=== PATIENT | female | born 1955 | race Caucasian/White ===

== ENCOUNTER 2022-02-05 07:30 | Day surgery (SDC) | payer MEDICARE, OTHER ==
[~2022-02-05] VITALS: Ht 167.6 cm; Wt 104.3 kg
[~2022-02-05 07:30] MED LIST: CYCLOBENZAPRINE10 MG PO; DILTIAZEM ER180 M1 PO; LEVOTHYROXINE175 MC1 PO; LIPITOR20 MG PO; METFORMIN HCL500 MG PO; OMEPRAZOLE20 MG PO; TYLENOL EXTRA500 MG; ULTRAM50 MG PO
[2022-02-05] MEDS ORDERED: IMITREX25 MG PO (08:27)
[2022-02-05] MEDS ORDERED: CYMBALTA20 MG PO (08:27)
--- NOTE | 2022-02-05 09:44 | NUR ---
PT ALERT, ORIENTED AND HERE FOR ROUTINE SCOPE. PT COMMENTED THAT SHE HAD SOME NAUSEA DURING PREP. ENCOURAGED HER TO SHARE THIS WITH DR ALVARADO, ACKNOWLEDGED BY PT. PT HAS RIDE ARRANGED, REQUESTED PRAYER. WILL FOLLOW
--- NOTE | 2022-02-05 09:59 | NUR ---
02/05/22 0959 Lisa Betts 0955- PT ARRIVES TO PACU EASILY AROUSABLE TO VOICE. PT FALLS TO SLEEP WHEN NOT BEING TALKED TO. RESP EVEN AND UNLABORED. OXYGEN SAT HIGH 90'S ON 3L VIA CO2 NC.
--- NOTE | 2022-02-06 07:46 | OR ---
[facility] [address], [place] [address] Signed DATE OF OPERATION: 02/05/2022 SURGEON: Benny Alvarado MD PREOPERATIVE DIAGNOSIS: Personal history of colonic polyps. POSTOPERATIVE DIAGNOSES: 1. 4 mm polyps x3 at 20 cm/distal sigmoid colon. 2. 3 mm polyps x3 at 6 cm/rectum. PROCEDURE: Colonoscopy with hot biopsies. ESTIMATED BLOOD LOSS: None. INDICATIONS: Migdalia is a 66-year-old obese diabetic female, asked to see me for followup colonoscopy. She remembers upper endoscopy with Dr. Diego Ledbetter many years ago. She was treated at that time for Helicobacter pylori. Apparently, she was anemic and having issues with constipation and hemorrhoids. I helped her with a colonoscopy in 2004 and removed six small hyperplastic polyps. She did well with the Versed and fentanyl. She underwent repeat colonoscopy in [address] Olivares. She remembers polyps were removed. Again, she did well with the Versed and fentanyl. Apparently, she was asked to follow up in 3-5 years. Unfortunately, we were still trying to track down those records. Currently, no lower GI complaints. She stays at home and takes care of her , who apparently has had a stroke. Migdalia worked for many years at [employer] in [place], [place]. She is therefore very familiar with this whole process. She told me there is no family history of colon cancer or polyps. She said if she gets too much IV narcotics, she can develop pruritus. She said Decadron Vistaril always work in that regard. I reminded that she has had Versed and fentanyl in the past and is always done well. She told me she is aware of that. We offered to go ahead and give her some Decadron and Vistaril before we started, but she said it will be fine. In the office, I had given her a pamphlet on colonoscopy. She recalls that test quite well. There is risk including, but not limited to gas bloating, crampy abdominal pain, bleeding, perforation requiring surgery, and missed diagnosis. She had expressed understanding and wished to proceed. DESCRIPTION OF PROCEDURE: Electronically Signed By: BENNY ALVARADO MD 02/06/22 0746 PATIENT NAME: MIGDALIA ROY OPERATIVE REPORT DATE OF : 53 REPORT #: [id number] PHYSICIAN: BENNY ALVARADO MD PCP: NO PRIMARY CARE PHYSICIAN REPORT IS CONFIDENTIAL AND NOT TO BE RELEASED WITHOUT AUTHORIZATION [facility] [address], [place] [address] Signed Migdalia was taken into our endoscopy suite and placed in the left lateral decubitus position. She was given a total of 10 mg of Versed and 200 mcg of fentanyl. There were times when she was little awake and moving around. The scope kept buckling in her left colon. I think in the future, she would be much better served with monitored anesthesia care and infusion of propofol. We had to rotator her into the supine position and then back into the left lateral decubitus position before the scope finally went into the cecum itself. We done a digital rectal exam and that had been unremarkable. She had good sphincter tone and no external hemorrhoids. Her prep was quite good. We could easily see the appendiceal orifice and ileocecal valve. The scope was then slowly withdrawn. The above-mentioned polyps were easily removed with the help of hot biopsy forceps. The scope had been retroflexed in the rectum and a very little if anything in the way of internal hemorrhoid tissue. After this, the gas was suctioned out and the colonoscope removed. Migdalia tolerated the procedure quite well. RECOMMENDATIONS: I will see Migdalia back in my office in 7 to 14 days to review her results. In the future, she should consider monitored anesthesia care with propofol as described above. Benny Alvarado MD ALB/MODL /[id number] cc: Patient Chart Benny Alvarado MD [facility] Copies: BENNY ALVARADO MD ~ Electronically Signed By: BENNY ALVARADO MD 02/06/22 0746 PATIENT NAME: MIGDALIA ROY OPERATIVE REPORT DATE OF : 53 REPORT #: [id number] PHYSICIAN: BENNY ALVARADO MD PCP: NO PRIMARY CARE PHYSICIAN REPORT IS CONFIDENTIAL AND NOT TO BE RELEASED WITHOUT AUTHORIZATION
--- NOTE | 2022-02-09 14:35 | PATH ---
[facility] [address] [facility] [place], [place] [address] Signed SPECIMEN(S): A DISTAL SIGMOID POLYP AT 20 CM SPECIMEN(S): B COLON POLYP AT 6 CM SPECIMEN SOURCE: A. DISTAL SIGMOID POLYP AT 20 CM B. COLON POLYP AT 6 CM CLINICAL HISTORY: Follow up of colonoscopy 2004 and 2012 history of polyps. Post: Polyps. FINAL PATHOLOGIC DIAGNOSIS: A. Distal sigmoid polyp at 20 cm: - Hyperplastic polyp (three fragments). B. Colon polyp at 6 cm: - Hyperplastic polyp (three fragments). JVR:[facility]:C2NR MICROSCOPIC EXAMINATION: Histologic sections of all submitted blocks are examined by light microscopy. These findings, together with the gross examination, support the pathologic diagnosis. GROSS DESCRIPTION: Two specimens are received in two containers labeled with "PM." A. The specimen, labeled "PM, polyp at 20 cm distal sigmoid," is received in formalin and consists of three fragments of pink-la tissue (0.3 cm in greatest dimension). The specimen is submitted entirely in cassette (A1). B. The specimen, labeled "PM, polyp at 6 cm," is received in formalin and consists of three fragments of pink-la tissue (0.2-0.3 cm in greatest dimension). The specimen is submitted entirely in cassette (B1). AC (under the direct supervision of a pathologist) The Gross Description was prepared using a voice recognition system. The report was reviewed for accuracy; however, sound-alike word errors, addition and/or deletions may occur. If there is any question about this report, please contact Client Services. PERFORMING LABORATORY: The technical component was performed by [facility], [address] [place] [id number] (CLIA# [id number]). Professional interpretation was PATIENT NAME: RANJIT ROY PATHOLOGY DATE OF : 53 REPORT #: [id number] PHYSICIAN: [facility] PCP: NO PRIMARY CARE PHYSICIAN REPORT IS CONFIDENTIAL AND NOT TO BE RELEASED WITHOUT AUTHORIZATION [facility] [address] [place] [id number] Signed performed by [facility], [address] [place] [id number] (CLIA#: [id number]). Diagnostician: Kemar Hamm MD Pathologist Electronically Signed 02/09/2022 Copies: ~ PATIENT NAME: RANJIT ROY PATHOLOGY DATE OF : 53 REPORT #: [id number] PHYSICIAN: [facility] PCP: NO PRIMARY CARE PHYSICIAN REPORT IS CONFIDENTIAL AND NOT TO BE RELEASED WITHOUT AUTHORIZATION
== END 2022-02-05 10:37 | disposition home or self-care (01) ==
LOC: OPS 07:30 → DS 07:30 → OPS 09:00 → DS 09:00 → OPS 10:37
PROVIDERS: ATTEND Colon & Rectal Surgery
PROC: 0DBN8ZX Excision of Sigmoid Colon, Via Natural or Artificial Opening Endoscopic, Diagnostic (ICD-10-PCS; 2022-02-05)
PROC: 0DBP8ZX Excision of Rectum, Via Natural or Artificial Opening Endoscopic, Diagnostic (ICD-10-PCS; principal; 2022-02-05 09:00)
DX: K63.5 Polyp of colon (principal); E11.9 Type 2 diabetes mellitus without complications; E66.9 Obesity, unspecified; I10 Essential (primary) hypertension; K21.9 Gastro-esophageal reflux disease without esophagitis; E78.5 Hyperlipidemia, unspecified; E03.9 Hypothyroidism, unspecified; Z88.0 Allergy status to penicillin; Z88.6 Allergy status to analgesic agent; Z88.8 Allergy status to other drugs, medicaments and biological substances; Z91.018 Allergy to other foods; Z86.010 Personal history of colon polyps; Z79.84 Long term (current) use of oral hypoglycemic drugs
CPT/HCPCS: 99153; G0500; J0690; J2250; J3010; J7121